=== PATIENT | female | born 1930 | race Two or more races ===

== ENCOUNTER → 2021-02-02 | Outpatient (CLI) | payer MEDICARE | END | disposition home or self-care (01) | LOC: CVU 14:39 | PROVIDERS: ATTEND Internal Medicine Cardiovascular Disease | DX: I08.2 Rheumatic disorders of both aortic and tricuspid valves (principal); I31.3 Pericardial effusion (noninflammatory); I87.2 Venous insufficiency (chronic) (peripheral); I10 Essential (primary) hypertension; M79.662 Pain in left lower leg; R22.43 Localized swelling, mass and lump, lower limb, bilateral | CPT/HCPCS: 93306; 93356 ==

== ENCOUNTER → 2021-02-10 | Outpatient (CLI) | payer MEDICARE | END | disposition home or self-care (01) | LOC: CVU 09:40 | PROVIDERS: ATTEND Internal Medicine Cardiovascular Disease | DX: I87.2 Venous insufficiency (chronic) (peripheral) (principal); I10 Essential (primary) hypertension; M79.662 Pain in left lower leg; R22.43 Localized swelling, mass and lump, lower limb, bilateral | CPT/HCPCS: 93922 ==

== ENCOUNTER → 2021-02-13 | Outpatient (CLI) | payer MEDICARE | END | disposition home or self-care (01) | LOC: CVU 09:29 | PROVIDERS: ATTEND Internal Medicine Cardiovascular Disease | DX: I86.8 Varicose veins of other specified sites (principal); I87.2 Venous insufficiency (chronic) (peripheral); I10 Essential (primary) hypertension; R22.43 Localized swelling, mass and lump, lower limb, bilateral; M79.662 Pain in left lower leg | CPT/HCPCS: 93970 ==